=== PATIENT | female | born 1940 | race Caucasian/White ===

== ENCOUNTER 2021-05-14 16:52 | Emergency (ER) | payer OTHER, SELFPAY ==
--- NOTE | ~2021-05-14 | XR_ITS ---
EXAMINATION: XR ribs LT 2V w CXR 2V INDICATION: Left-sided chest pain after fall TECHNIQUE: AP and lateral views of the chest and 3 views of the left ribs were obtained. COMPARISON: None. FINDINGS: There is mild atelectasis of the left lung base. No pleural effusion or pneumothorax is oliver ntified. The heart size is normal. There are changes of coronary artery bypass grafting. There are ac red cliff fractures of the left eighth and ninth ribs. IMPRESSION: 1. Left eighth and ninth rib fractures. No acute cardiopulmonary abnormality. Reviewed, dictated and finalized at location A.
--- NOTE | ~2021-05-14 | CT_ITS ---
EXAMINATION: CT abdomen pelvis w con INDICATION: Abdominal pain TECHNIQUE: Computed tomographic images of the abdomen and pelvis were obtained after the administrati on of 100 cc of Omnipaque 350 intravenous contrast. The dose-length product (DLP) was 314.15 mGy-cm. Automated exposure control and iterative reconstruction technique were employed. COMPARISON: None available FINDINGS: Minimal dependent atelectasis is present in the lung bases. The heart size is normal. There are healing fractures of the left eighth and ninth ribs. There is an age-indeterminate left 11th rib fracture. There is focal fatty infiltration of the liver adjacent to the ligamentum teres. The splee n, pancreas, and adrenal glands are normal. Stones are present in the nondistended gallbladder. The k idneys are unremarkable. There is a 3.7 x 3.2 cm fusiform infrarenal abdominal aortic aneurysm status post endoluminal stent graft repair. The urinary bladder is moderately distended. Colonic diverticul osis is present without evidence of diverticulitis. No pathologically enlarged abdominal or pelvic ly mph nodes are identified. There is no free intraperitoneal gas or evidence of bowel obstruction. Ther e are multiple areas of fatty infiltration in the anterior abdominal wall, likely bruising. There are tiny foci of hyperattenuation in the left lower quadrant and right midabdomen which could reflect ac emir hematomas. There is moderate lumbar spondylosis. IMPRESSION: 1. Multiple areas of fatty infiltration of the anterior abdominal wall, likely bruising, some with fo ci of hyperattenuation which likely reflect acute hematomas. 2. Healing left eighth and ninth rib fracture is an age-indeterminate 11th rib fracture. Reviewed, dictated and finalized at location A. IMPRESSION: 1. Multiple areas of fatty infiltration of the anterior abdominal wall, likely bruising, some with foci of hyperattenuation which likely reflect acute hematom as. 2. Healing left eighth and ninth rib fracture is an age-indeterminate 11th rib fracture.
[2021-05-14 16:55] VITALS: BP 100/60; PULSE 94; RESP 20; TEMP 36.4; O2SAT 96
[2021-05-14 17:19] VITALS: BP 121/88; PULSE 95; RESP 18; O2SAT 96
--- NOTE | 2021-05-14 17:49 | ED.FALL ---
HPI - Fall General Chief Complaint: Fall Stated Complaint: fall Time Seen by Provider: 05/14/21 17:19 Source: patient, EMS and RN notes reviewed Mode of arrival: EMS Limitations: no limitations History of Present Illness HPI Narrative: Patient is 80 years old white female [facility] because of pain in the abdomen mainly left side and left lower ribs after a fall yesterday. Patient tripped and fell on her walker yesterday. Denies any head injury, neck injury or back injury. Complaining of left abdominal pain and left lower rib pain. Patient had x-ray left hip yesterday with negative results at the [facility] Patient denies any fever, chills, nausea, vomiting, chest pain, shortness of breath, headache, neck pain or back pain. Patient is bedridden, status post a CABG 1 month ago at [facility]. Review of Systems Review of Systems: CONSTITUTIONAL: Denies fever, chills, or sweats. EYES: Denies visual changes, redness, or discharge. ENT: Denies rhinorrhea, congestion, sore throat, or otalgia. CARDIOVASCULAR: Denies chest pain, palpitations, or edema. RESPIRATORY: Denies cough or dyspnea. GASTROINTESTINAL: Denies abdominal pain, nausea, vomiting, or diarrhea. GENITOURINARY: Denies dysuria or hematuria. SKIN: Denies rash or itching. MUSCULOSKELETAL: Denies back pain, joint pain, or myalgia. NEUROLOGIC: Denies headache, numbness, or weakness. PSYCHIATRIC: Denies anxiety or depression. [facility] Family History Family History Father Family history of heart disease in male family member before age 55 Mother Family history of heart disease in male family member before age 55 Other Asthma Cerebrovascular accident Family history of arthritis Family history of cardiovascular disease Family history of renal cell carcinoma Hypertension Social History Social History Smoking status: Heavy tobacco smoker Alcohol intake: never Gender identity (if verbalized by the patient): Female Exam Narrative: General appearance: Well-developed, well-nourished Skin: Diffuse ecchymosis of the abdomen almost 50% of the abdominal skin. Secondary to subcutaneous injection of possible Lovenox as a prophylaxis to prevent deep vein thrombosis Head: Normocephalic, nontraumatic Eyes: Clear conjunctiva ENT: Oropharynx normal, ears normal, nose normal Neck: Supple, nontender Chest and respiratory: Airway patent, no respiratory distress, no accessory muscle use, diffuse tenderness left lower ribs with palpation. Heart: Regular rate/rhythm Abdomen: Soft, diffuse tenderness mainly left abdomen Vascular: Normal peripheral pulses, normal capillary refill. Musculoskeletal: Normal range of motion, nontender back Neurologic: Alert and oriented ?3, [employer] is normal as tested, no gross motor deficit Course Course Emergency Course: Stable Vital Signs Vital signs: Vital Signs Temperature 36.4 C L 05/14/21 16:55 Pulse Rate 94 05/14/21 16:55 Respiratory Rate 20 05/14/21 16:55 Blood Pressure 100/60 05/14/21 16:55 Pulse Oximetry 96 05/14/21 16:55 Temperature 36.4 C L 05/14/21 16:55 Pulse Rate 95 05/14/21 17:19 Respiratory Rate 18 05/14/21 17:19 Blood Pressure 121/88 05/14/21 17:19 Pulse Oximetry 96 05/14/21 17:19 MDM - Fall MDM Narrative Medical decision making narrative: Patient presents with pain abdomen and left lower ribs status post a fall yesterday. Intra-abdominal viscus injury, rib fracture is my concern. Labs, left rib x-ray, CT abdomen pelvis with IV contrast, UA ordered Differential Diagnosis Differenti
[2021-05-14 18:28] LABS: Basophils Percent Auto 0.2 % (0.2-1.2); Eosinophils Absolute Auto 0.2 K/mm3 (0-0.3); Hematocrit 31.5 % (37.0-47.0); Hemoglobin 9.8 g/dL (12.0-15.0); Immature Granulocyte Absolute 0.02 K/mm3 (0.00-0.031); Immature Granulocyte Percent A 0.4 % (0-0.5); Lymphocytes Absolute Auto 1.02 K/mm3 (0.9-3.2); Lymphocytes Percent Auto 21.2 % (18.3-44.2); Mean Corpuscular HGB Conc 31.1 g/dl (32-36); Mean Corpuscular Hemoglobin 30.8 pg (26-34); Mean Corpuscular Volume 99.1 fl (80-100); Mean Platelet Volume 11.3 fl (7.4-10.4); Monocytes Absolute Auto 0.3 K/mm3 (0.1-0.6); Monocytes Percent Auto 6.4 % (2.6-8.5); Neutrophils Absolute Auto 3.3 K/mm3 (1.3-6.7); Neutrophils Percent Auto 67.8 % (45.5-73.1); Platelet Count Result 272 k/mm3 (150-375); Red Blood Count 3.18 M/mm3 (4.2-5.4); Red Cell Distribution Width 19.2 % (11.5-14.5); White Blood Count 4.8 K/mm3 (4.5-10.0)
[2021-05-14] MEDS: MORPHINE SULFATE (*CRX) 4 MG/ML INJ IV PUSH (18:30)
[2021-05-14] MEDS: ONDANSETRON INJ 4 MG/2 ML VIAL IV PUSH (18:30)
[2021-05-14] MEDS: SODIUM CHLORIDE 0.9% IV 1,000 ML 999 ML IV CONT (18:30)
[2021-05-14 18:43] LABS: Alanine Aminotransferase 6 U/L (4-35); Albumin Level 3.7 g/dL (3.5-5.1); Alkaline Phosphatase 125 U/L (38-126); Anion Gap 11 mmol/L (8-16); Aspartate Amino Transferase 19 U/L (14-36); Bilirubin,Total 0.6 mg/dL (0.2-1.3); Blood Urea Nitrogen 24 mg/dL (7-17); Calcium 9.2 mg/dL (8.4-10.2); Carbon Dioxide 26 mmol/L (22-30); Chloride 99 mmol/L (98-107); Estimated Glomerular Filt Rate 48; Glucose 104 mg/dL (65-110); Lipase 38 U/L (23-300); Potassium 4.4 mmol/L (3.4-5.0); Sodium 136 mmol/L (137-145)
[2021-05-14 19:00] VITALS: BP 118/79; PULSE 93; RESP 18; O2SAT 96
[2021-05-14 19:06] LABS: Add Urine Microscopic? YES; Appearance Urine Cloudy (Clear); Bacteria Urine Trace /hpf; Bilirubin Urine Negative (Negative); Blood Urine Negative (Negative); Color Urine Yellow (Yellow); Glucose Urine UA Negative (Negative); Ketones Urine Negative (Negative); Leukocyte Esterase Ur 3+ LEU/UL (Negative); Mucus Urine Rare /lpf; Nitrate Urine Negative (Negative); Protein Urine Negative (Negative); RBC Urine 0-2 /hpf (0-2); Specific Grav Ur 1.008 (1.001-1.035); Squamous Epithelial Cell Urine Many /hpf (Few); Urobilinogen Urine Negative mg/dL (<2.0); WBC Urine >75 /hpf
--- NOTE | 2021-05-14 19:16 | PC.NURSE ---
Assumed care at this time, report from DENNIS Lux
[2021-05-14 20:48] VITALS: BP 116/76; PULSE 78; RESP 18; O2SAT 98
--- NOTE | 2021-05-14 21:39 | PC.NURSE ---
Addendum entered by Shawna Coleman 05/14/21 21:39: [facility], [facility] and [facility] not available tonight. Original Note: called [facility] to request transport. ETA [id number]
--- NOTE | 2021-05-14 22:50 | PC.NURSE ---
cancel [facility].
[2021-05-14 23:22] VITALS: BP 116/70; PULSE 78; RESP 18; O2SAT 94
== END 2021-05-14 23:23 ==
PROVIDERS: Emergency Medicine; Emergency Provider Emergency Medicine
DX: S22.42XA Multiple fractures of ribs, left side, initial encounter for closed fracture (principal); I25.10 Atherosclerotic heart disease of native coronary artery without angina pectoris; Z95.1 Presence of aortocoronary bypass graft; F17.200 Nicotine dependence, unspecified, uncomplicated; R10.9 Unspecified abdominal pain; W01.198A Fall on same level from slipping, tripping and stumbling with subsequent striking against other object, initial encounter
CPT/HCPCS: 36415; 71046; 71100; 74177; 80053; 81001; 83690; 85025; 87077; 87086; 87186; 96361; 96365; 96375; 99284; J0696; J2270; J2405; J7030; Q9967

== ENCOUNTER 2021-06-14 15:57 | Outpatient (NON) | payer OTHER, SELFPAY ==
[2021-06-14 16:58] LABS: Hematocrit 28.9 % (37.0-47.0); Hemoglobin 8.8 g/dL (12.0-15.0)
== END 2021-06-14 15:58 | disposition home or self-care (01) ==
PROVIDERS: Visit Provider Physician Assistant
DX: I48.91 Unspecified atrial fibrillation (principal); J44.9 Chronic obstructive pulmonary disease, unspecified; I25.10 Atherosclerotic heart disease of native coronary artery without angina pectoris; Z48.812 Encounter for surgical aftercare following surgery on the circulatory system
CPT/HCPCS: 85014; 85018

== ENCOUNTER 2024-09-10 20:53 | Observation (INO) | payer OTHER, SELFPAY ==
[2024-09-10 21:04] VITALS: BP 131/84; PULSE 113; RESP 25; O2SAT 97
--- NOTE | 2024-09-10 21:13 | ECG_ITS ---
Test Date: 2024-09-10 21:20:40 Measurements Intervals [place] Rate: 109 P: 0 MS: 0 QRS: -59 QRSD: 141 T: 29 QT: 382 QTc: 516 Interpretive Statements ATRIAL FIBRILLATION WITH RAPID VENTRICULAR RESPONSE LEFT AXIS DEVIATION RIGHT BUNDLE BRANCH BLOCK CONSIDER INFERIOR INFARCT, AGE INDETERMINATE BASELINE ARTIFACT- I, II, III, AVR, AVL, AVF, V3, V6 ABNORMAL ECG No previous ECG available for comparison Electronically Signed On 09-11-2024 07:08:30 [employer] by Kendell Farias D.O.
[2024-09-10 21:30] LABS: Basophils Percent Auto 0.3 % (0.2-1.2); Eosinophils Absolute Auto 0.1 K/mm3 (0-0.3); Eosinophils Percent Auto 3.8 % (0-4.4); Hematocrit 21.6 % (37.0-47.0); Immature Granulocyte Absolute 0.04 K/mm3 (0.00-0.031); Immature Granulocyte Percent A 1.3 % (0-0.5); Lymphocytes Absolute Auto 0.33 K/mm3 (0.9-3.2); Lymphocytes Percent Auto 10.3 % (18.3-44.2); Mean Corpuscular HGB Conc 30.6 g/dl (32-36); Mean Corpuscular Hemoglobin 31.9 pg (26-34); Mean Corpuscular Volume 104.3 fl (80-100); Mean Platelet Volume 12.9 fl (7.4-10.4); Monocytes Absolute Auto 0.2 K/mm3 (0.1-0.6); Neutrophils Absolute Auto 2.5 K/mm3 (1.3-6.7); Neutrophils Percent Auto 78.3 % (45.5-73.1); Platelet Count Result 168 k/mm3 (150-375); Red Blood Count 2.07 M/mm3 (4.2-5.4); Red Cell Distribution Width 23.7 % (11.5-14.5); White Blood Count 3.2 K/mm3 (4.5-10.0)
[2024-09-10 21:31] LABS: Hemoglobin 6.6 g/dL (12.0-15.0)
[2024-09-10 21:50] LABS: Alanine Aminotransferase 8 U/L (6-35); Albumin Level 3.4 g/dL (3.5-5.1); Alkaline Phosphatase 98 U/L (38-126); Anion Gap 7 mmol/L (4-12); Aspartate Amino Transferase 18 U/L (14-36); Bilirubin,Total 0.6 mg/dL (0.2-1.3); Blood Urea Nitrogen 25 mg/dL (7-17); Calcium 8.3 mg/dL (8.4-10.2); Carbon Dioxide 28 mmol/L (22-30); Chloride 104 mmol/L (98-107); Estimated CRCL calculation 33 ml/min; Estimated Glomerular Filt Rate 53; Glucose 101 mg/dL (65-110); Potassium 4.1 mmol/L (3.4-5.0); Sodium 139 mmol/L (137-145)
[2024-09-10 21:57] LABS: Ovalocytes 1+; Platelet Estimate Adequate (Adequate); Schistocytes None Seen
--- NOTE | 2024-09-10 21:59 | ED.GENADULT ---
HPI - General Adult General Chief complaint: Recheck/Abnormal Lab/Rx Stated complaint: HGB 6.8, SOB, 3L NC Time Seen by Provider: 09/10/24 21:38 History of Present Illness HPI narrative: patient 84-year-old female who presents emergency department with chief complaint of anemia. Patient reports he has prior history of COPD and reports he has history of anemia where she has been seen multiple times at [facility] and has had multiple transfusions. Patient reports that they do have a difficult time sometimes getting blood for her reports that she recently moved into [facility] and would like to start receiving her care at our facility instead of traveling although when [place] the patient reports that they did labs on her today and called and said that she should go to the emergency department for blood transfusion. the patient denies blood in her stool reports this is her usual episode MDS cause of anemia Related Data Home Medications Medication Instructions Recorded Confirmed aspirin 81 mg tablet 81 mg PO DAILY 05/14/21 05/14/21 atorvastatin 40 mg tablet 05/14/21 bupropion HCl 150 mg 24 hr tablet, mg PO 05/14/21 05/14/21 extended release ergocalciferol (vitamin D2) 1,250 05/14/21 mcg (50,000 unit) capsule fluticasone furoate 200 inhalation 05/14/21 mcg-vilanterol 25 mcg/dose inhalation powder (Breo Ellipta) furosemide 40 mg tablet 05/14/21 gabapentin 300 mg capsule 05/14/21 heparin (porcine) 5,000 unit/mL 05/14/21 injection solution ipratropium 0.5 mg-albuterol 3 mg ml inhalation 05/14/21 (2.5 mg base)/3 mL nebulization soln lorazepam 0.5 mg tablet 05/14/21 meclizine 25 mg tablet mg 05/14/21 oxycodone 5 mg tablet 05/14/21 pantoprazole 40 mg tablet,delayed PO 05/14/21 release potassium chloride 20 mEq meq PO 05/14/21 tablet,extended release(part/cryst) ramelteon 8 mg tablet 8 mg PO HS 05/14/21 05/14/21 sennosides 8.6 mg tablet (senna) 8.6 mg PO HS 05/14/21 05/14/21 tamsulosin 0.4 mg capsule mg PO 05/14/21 Allergies Allergy/AdvReac Type Severity Reaction Status Date / Time amoxicillin [From Augmentin] Allergy Unknown Verified 09/10/24 21:14 clavulanic acid Allergy Unknown Verified 09/10/24 21:14 [From Augmentin] Penicillins Allergy Unknown Verified 09/10/24 21:14 [facility] Family History Family History Father Family history of heart disease in male family member before age 55 Mother Family history of heart disease in male family member before age 55 Other Asthma Cerebrovascular accident Family history of arthritis Family history of cardiovascular disease Family history of renal cell carcinoma Hypertension Social History Social History (System 12/06/21 @ 15:14 by Citlaly Duran) Smoking status: Heavy tobacco smoker Alcohol intake: never Gender identity (if verbalized by the patient): Female Course Vital Signs Vital signs: Vital Signs Pulse Rate 113 H 09/10/24 21:04 Respiratory Rate 25 H 09/10/24 21:04 Blood Pressure 131/84 09/10/24 21:04 Pulse Oximetry 97 09/10/24 21:04 Oxygen Delivery Nasal Cannula 09/10/24 21:04 Oxygen Flow Rate 3 09/10/24 21:04 Temperature 36.8 C 09/10/24 22:24 Pulse Rate 107 H 09/10/24 22:24 Respiratory Rate 20 09/10/24 22:24 Blood Pressure 133/70 09/10/24 22:24 Pulse Oximetry 95 09/10/24 22:24 Oxygen Delivery Nasal Cannula 09/10/24 21:04 Oxygen Flow Rate 3 09/10/24 22:16 Medical Decision Making Vital Signs Vital Signs: Vital Signs Pulse Rate 113 H 09/10/24 21:04 Respiratory Rate 25 H 09/10/24 21:04 Blood Pressure 131/84 09/10/24 21:04 Pulse Oximetry 97 09/10/24 21:04 Oxygen Delivery Nasal Cannula 09/10/24 21:04 Oxygen Flow Rate 3 09/10/24 21:04 Temperature 36.8 C 09/10/24 22:24 Pulse Rate 107 H 09/10/24 22:24 Respiratory Rate 20 09/10/24 22:24 Blood Pressure 133/70 09/10/24 22:24 Pulse Oximetry 95 09/10/24 22:24 Oxygen Delivery Nasal Cannula 09/10/24 21:04 Oxygen Flow Rate 3 09/10/24 22:16 Lab Data 09/10/24 21:22 09/10/24 21:22 Labs: Lab Results 09/10/24 Range/Units 21:22 WBC 3.2 L (4.5-10.0) K/mm3 RBC 2.07 L (4.2-5.4) M/mm3 Hgb 6.6 L* (12.0-15.0) g/dL Hct 21.6 L (37.0-47.0) % MCV 104.3 H (80-100) fl MCH 31.9 (26-34) pg MCHC 30.6 L (32-36) g/dl RDW 23.7 H (11.5-14.5) % Plt Count 168 (150-375) k/mm3 MPV 12.9 H (7.4-10.4) fl Immature Gran % (Auto) 1.3 H (0-0.5) % Neut % (Auto) 78.3 H (45.5-73.1) % Lymph % (Auto) 10.3 L (18.3-44.2) % [place] % (Auto) 6.0 (2.6-8.5) % Eos % (Auto) 3.8 (0-4.4) % Baso % (Auto) 0.3 (0.2-1.2) % Lymph # (Auto) 0.33 L (0.9-3.2) K/mm3 [place] # (Auto) 0.2 (0.1-0.6) K/mm3 Eos # (Auto) 0.1 (0-0.3) K/mm3 Baso # (Auto) 0.0 (0.0-0.1) K/mm3 Abs Immat Gran (auto) 0.04 H (0.00-0.031) K/mm3 Absolute Neuts (auto) 2.5 (1.3-6.7) K/mm3 Absolute Nucleated RBC 0.000 (0.0-0.012) K/mm3 Nucleated RBC % 0.0 (0.0-0.2) % Platelet Estimate Adequate (Adequate) Ovalocytes 1+ Schistocytes None seen Sodium 139 (137-145) mmol/L Potassium 4.1 (3.4-5.0) mmol/L Chloride 104 (98-107) mmol/L Carbon Dioxide 28 (22-30) mmol/L Anion Gap 7 (4-12) mmol/L BUN 25 H (7-17) mg/dL Creatinine 1.00 (0.7-1.0) mg/dL Estim Creat Clear Calc 33 ml/min Estimated GFR 53 L (59 - ) Glucose 101 (65-110) mg/dL Calcium 8.3 L (8.4-10.2) mg/dL Total Bilirubin 0.6 (0.2-1.3) mg/dL AST 18 (14-36) U/L ALT 8 (6-35) U/L Alkaline Phosphatase 98 (38-126) U/L Total Protein 7.0 (6.3-8.2) g/dL Albumin 3.4 L (3.5-5.1) g/dL Blood Type A Positive Antibody Screen Pending Crossmatch See Detail Discharge Plan Discharge Clinical Impression: Anemia Patient Disposition: Still a Patient Condition: Stable Prescriptions: No Action furosemide 40 mg tablet atorvastatin 40 mg tablet sennosides [senna] 8.6 mg Tablet 8.6 mg PO HS ipratropium-albuterol 0.5 mg-3 mg(2.5 mg base)/3 mL solution for nebulization INHALATION potassium chloride 20 mEq tablet,ER particles/crystals PO lorazepam 0.5 mg tablet tamsulosin 0.4 mg capsule PO meclizine 25 mg tablet pantoprazole 40 mg tablet,delayed release (DR/EC) PO gabapentin 300 mg capsule aspirin 81 mg Tablet 81 mg PO DAILY ergocalciferol (vitamin D2) 1,250 mcg (50,000 unit) capsule heparin (porcine) 5,000 unit/mL solution oxycodone 5 mg tablet bupropion HCl 150 mg tablet extended release 24 hr PO ramelteon 8 mg Tablet 8 mg PO HS Breo Ellipta 200-25 mcg/dose blister with device INHALATION cefdinir 300 mg capsule 300 mg PO Q12H Qty: 10 0RF Follow-up/Referrals: UNKNOWN,DOCTOR [Primary Care Provider] - Time of Disposition: 22:53
[2024-09-10 22:16] VITALS: O2SAT 95
[2024-09-10 22:24] VITALS: BP 133/70; PULSE 107; RESP 20; TEMP 36.8; O2SAT 95
[2024-09-10] MEDS: SODIUM CHLORIDE 0.9% IV 250 ML 30 ML IV CONT (22:47)
[2024-09-11] VITALS (16 sets, daily range): BP systolic 104–139; BP diastolic 73–89; PULSE 54–122; RESP 15–18; TEMP 36.4–37; O2SAT 92–100; BMI 25.9
[2024-09-11] MEDS: TUBING, BLOOD SET 1 EACH XX (00:31)
--- NOTE | 2024-09-11 01:00 | ADMGEN ---
This patient, Kamala Ellis, was admitted to Medical Room 340-01. Patient/family oriented to hospital policies and general routines including ID bracelet, bed and alarms, visiting hours, pain management, procedures, bathroom and other care routines, personal items, smoking policy, room service/diet, and visiting hours. Information on how to activate the Rapid Response Team has been discussed. Patient/Family are encouraged to report perceived risks to care and to ask questions if they do not understand what they are told or what they should do.
[2024-09-11] MEDS: SODIUM CHLORIDE 0.9% IV 250 ML 30 ML (03:25)
[2024-09-11 08:47] LABS: Hematocrit 28.6 % (37.0-47.0); Hemoglobin 9.2 g/dL (12.0-15.0); Mean Corpuscular HGB Conc 32.2 g/dl (32-36); Mean Corpuscular Hemoglobin 32.1 pg (26-34); Mean Corpuscular Volume 99.7 fl (80-100); Platelet Count Result 147 k/mm3 (150-375); Red Blood Count 2.87 M/mm3 (4.2-5.4); Red Cell Distribution Width 21.2 % (11.5-14.5); White Blood Count 3.3 K/mm3 (4.5-10.0)
--- NOTE | 2024-09-11 08:50 | PM.IMHP ---
H&P: HPI History of Present Illness Date/Time: 09/11/24 08:50 Chief Complaint: Generalized weakness Narrative: Ms. Kamala Ellis was is 84 years old female with history of MDS and multiple blood transfusions. In the past patient has received multiple transfusion [facility]. Today patient was feeling weak and decided to come to [facility]. In the ER patient was found to have hemoglobin of 6.6. Patient was given 2 units of blood and was transferred to for further evaluation. At present time patient is lying comfortably. Patient denies any shortness of breath or chest pain. Patient is feeling better. Plan is to repeat CBC and continue home medication. If repeat CBC stable will discharge home. Review of Systems Review of Systems: All systems reviewed & are unremarkable except as noted in HPI and below (the history and physical exam.) [facility] Family History Family History Father Family history of heart disease in male family member before age 55 Mother Family history of heart disease in male family member before age 55 Cerebrovascular accident Family history of cardiovascular disease Other Asthma Family history of arthritis Family history of renal cell carcinoma Hypertension Social History Social History Smoking packs per day: 1 Smoking cigarettes per day: 20.0 Years smoked: 50 Smoking pack-years: 50.00 Smoking status: Heavy tobacco smoker Tobacco type: cigarettes Smoking end date: 02/13/24 Alcohol intake: never Substance use: never Do You Feel Safe in your Home?: Yes Lack of Transportation: No Lack of Food: Never True Current Housing: I Have Housing Concerned About Future Housing: No Difficulty Paying Gas/Electric Bills: No Difficulty Paying for Meds: No Currently Unemployed: No Education: High School Diploma/GED Difficulty w/ Childcare or Family Care: No Gender identity (if verbalized by the patient): Female Spiritual care concerns: No Meds Home Medications and Allergies Home Medications Medication Instructions Recorded Confirmed Type aspirin 81 mg tablet 81 mg PO DAILY 05/14/21 09/11/24 History atorvastatin 40 mg tablet 40 mg PO HS 05/14/21 09/11/24 History bupropion HCl 150 mg 24 hr tablet, 150 mg PO DAILY 05/14/21 09/11/24 History extended release sennosides 8.6 mg tablet (senna) 8.6 mg PO DAILY 05/14/21 09/11/24 History albuterol sulfate 90 mcg/actuation 2 puff inhalation Q6H PRN SOB 09/11/24 09/11/24 History aerosol inhaler amiodarone 200 mg tablet 200 mg PO BID 09/11/24 09/11/24 History budesonide 160 mcg-glycopyr 9 2 inh inhalation BID 09/11/24 09/11/24 History mcg-formot 4.8 mcg/actuation HFA inhaler (Breztri Aerosphere) cyanocobalamin (vitamin B-12) 500 1,000 mcg PO DAILY 09/11/24 09/11/24 History mcg tablet dicyclomine 10 mg capsule 10 mg PO TID 09/11/24 09/11/24 History ferrous sulfate 325 mg (65 mg 325 mg PO DAILY 09/11/24 09/11/24 History iron) capsule,extended release folic acid 1 mg tablet 1 mg PO DAILY 09/11/24 09/11/24 History furosemide 20 mg tablet 20 mg PO DAILY 09/11/24 09/11/24 History pregabalin 50 mg capsule 50 mg PO BID 09/11/24 09/11/24 History Allergies Allergy/AdvReac Type Severity Reaction Status Date / Time amoxicillin [From Augmentin] Allergy Unknown Verified 09/10/24 21:14 clavulanic acid Allergy Unknown Verified 09/10/24 21:14 [From Augmentin] Penicillins Allergy Unknown Verified 09/10/24 21:14 Vital Signs Vital Signs - 24 hr 09/10/24 21:04 09/10/24 22:16 09/10/24 22:24 Temperature 36.8 C Pulse Rate 113 H 107 H Respiratory Rate 25 H 20 Blood Pressure 131/84 133/70 Pulse Oximetry 97 95 95 Oxygen Delivery Nasal Cannula Oxygen Flow Rate 3 3 09/11/24 00:25 09/11/24 00:33 09/11/24 00:42 Temperature 36.8 C 36.9 C Pulse Rate 93 102 H 103 H Respiratory Rate 15 15 16 Blood Pressure 121/75 125/74 122/77 Pulse Oximetry 98 99 99 Oxygen Delivery Oxygen Flow Rate 09/11/24 01:39 09/11/24 03:09 09/11/24 03:28 Temperature 37.0 C 36.5 C 36.5 C Pulse Rate 102 H 54 L 96 Respiratory Rate 16 18 18 Blood Pressure 135/76 104/73 135/80 Pulse Oximetry 100 95 100 Oxygen Delivery Oxygen Flow Rate 09/11/24 04:25 09/11/24 04:27 09/11/24 04:28 Temperature 36.4 C L 36.5 C 36.4 C L Pulse Rate 100 97 97 Respiratory Rate 18 18 18 Blood Pressure 126/77 127/77 127/77 Pulse Oximetry 100 100 100 Oxygen Delivery Oxygen Flow Rate 09/11/24 05:28 09/11/24 05:39 09/11/24 06:08 Temperature 36.5 C 36.5 C 36.9 C Pulse Rate 93 93 93 Respiratory Rate 18 18 18 Blood Pressure 132/86 132/86 139/89 Pulse Oximetry 100 100 98 Oxygen Delivery Oxygen Flow Rate 09/11/24 04:00 Temperature Pulse Rate 95 Respiratory Rate Blood Pressure Pulse Oximetry Oxygen Delivery Oxygen Flow Rate Exam Narrative: Narrative: General appearanc e: Well-developed, well-nourished Sk in: Diffuse ecchym osis of the abdome n almost 50% of th e abdominal skin. Secondary to subc utaneous injection of possible Loven ox as a prophylaxi s to prevent deep vein thrombosis He ad: Normocephalic, nontraumatic Eyes : Clear conjunctiv a ENT: Oropharynx normal, ears elsa l, nose normal Nec k: Supple, nontend er Chest and respi ratory: Airway pat ent, no respirator y distress, no acc essory muscle use, diffuse tendernes s left lower ribs with palpation. He art: Regular rate/ rhythm Abdomen: So ft, diffuse tender ness mainly left a bdomen Vascular: N ormal peripheral p ulses, normal capi llary refill. Musc uloskeletal: Elsa l range of motion, nontender back Ne urologic: Alert an d oriented ?3, [employer] is normal as test ed, no gross motor deficit H&P: Results Labs Labs: Short CBC 09/10/24 09/11/24 Range/Units 21:22 08:37 WBC 3.2 L 3.3 L (4.5-10.0) K/mm3 Hgb 6.6 L* 9.2 L (12.0-15.0) g/dL Hct 21.6 L 28.6 L (37.0-47.0) % Plt Count 168 147 L (150-375) k/mm3 BMP 09/10/24 21:22 Sodium 139 Potassium 4.1 Chloride 104 Carbon Dioxide 28 BUN 25 H Creatinine 1.00 Glucose 101 Calcium 8.3 L Liver Function 09/10/24 Range/Units 21:22 Total Bilirubin 0.6 (0.2-1.3) mg/dL AST 18 (14-36) U/L ALT 8 (6-35) U/L Alkaline Phosphatase 98 (38-126) U/L Albumin 3.4 L (3.5-5.1) g/dL Assessment and Plan Assessment and plan (1) Anemia: Code(s): D64.9 - Anemia, unspecified Status: Acute Assessment and Plan: History of MDS. Patient hemoglobin was 6.6. Patient received 2 units of blood. Repeat CBC and possible discharge back home today. (2) History of COPD: Code(s): Z87.09 - Personal history of other diseases of the respiratory system Status: Acute Assessment and Plan: Stable on current medications. Will continue current treatment (3) History of hypertension: Code(s): Z86.79 - Personal history of other diseases of the circulatory system Status: Acute Assessment and Plan: Stable on current medications. Will continue current treatment Quality VTE Prophylaxis VTE prophylaxis: mechanical ordered Patient is admitted for observation. 2 units of blood was given. Will repeat CBC and if CBC stable will discharge patient back home. Full code.
--- NOTE | 2024-09-11 09:10 | P.DS_ITS ---
DS: Admitting Diagnosis Discharge Date 09/11/2024 Admitting Diagnosis Anemia DS: Discharge Diagnosis Discharge Diagnosis (1) Anemia: Code(s): D64.9 - Anemia, unspecified Status: Acute Assessment and Plan: History of MDS. Patient hemoglobin was 6.6. Patient received 2 units of blood. Repeat CBC and possible discharge back home today. (2) History of COPD: Code(s): Z87.09 - Personal history of other diseases of the respiratory system Status: Acute Assessment and Plan: Stable on current medications. Will continue current treatment (3) History of hypertension: Code(s): Z86.79 - Personal history of other diseases of the circulatory system Status: Acute Assessment and Plan: Stable on current medications. Will continue current treatment DS: Summary Hospital Course Reason for hospitalization: Anemia Hospital Course: 84 years old female was admitted because of anemia hemoglobin was 6.6. Patient was given 2 units of blood. Home medications were continued. Repeat hemoglobin is 9.2. Patient discharged home in stable condition patient stay in the hospital was uneventful. Follow-up scheduled with primary care and Hematology. Status at Discharge Cognitive/behavioral status at discharge: Stable Time Spent with Patient Time attestation: Total time spent providing and/or coordinating discharge services: 30 minutes Exam Narrative: Narrative: General appearanc e: Well-developed, well-nourished Sk in: Diffuse ecchym osis of the abdome n almost 50% of th e abdominal skin. Secondary to subc utaneous injection of possible Loven ox as a prophylaxi s to prevent deep vein thrombosis He ad: Normocephalic, nontraumatic Eyes : Clear conjunctiv a ENT: Oropharynx normal, ears elsa l, nose normal Nec k: Supple, nontend er Chest and respi ratory: Airway pat ent, no respirator y distress, no acc essory muscle use, diffuse tendernes s left lower ribs with palpation. He art: Regular rate/ rhythm Abdomen: So ft, diffuse tender ness mainly left a bdomen Vascular: N ormal peripheral p ulses, normal capi llary refill. Musc uloskeletal: Elsa l range of motion, nontender back Ne urologic: Alert an d oriented ?3, [employer] is normal as test ed, no gross motor deficit DS: Data Data Completed and Pending Labs on day of discharge: Labs from last 24 hours 09/11/24 09/10/24 08:37 21:22 WBC 3.3 L 3.2 L RBC 2.87 L 2.07 L Hgb 9.2 L 6.6 L* Hct 28.6 L 21.6 L MCV 99.7 104.3 H MCH 32.1 31.9 MCHC 32.2 30.6 L RDW 21.2 H 23.7 H Plt Count 147 L 168 MPV 13.0 H 12.9 H Immature Gran % (Auto) 1.3 H Neut % (Auto) 78.3 H Lymph % (Auto) 10.3 L Schley % (Auto) 6.0 Eos % (Auto) 3.8 Baso % (Auto) 0.3 Lymph # (Auto) 0.33 L Schley # (Auto) 0.2 Eos # (Auto) 0.1 Baso # (Auto) 0.0 Abs Immat Gran (auto) 0.04 H Absolute Neuts (auto) 2.5 Absolute Nucleated RBC 0.000 Nucleated RBC % 0.0 Platelet Estimate Adequate Ovalocytes 1+ Schistocytes None seen Sodium 139 Potassium 4.1 Chloride 104 Carbon Dioxide 28 Anion Gap 7 BUN 25 H Creatinine 1.00 Estim Creat Clear Calc 33 Estimated GFR 53 L Glucose 101 Calcium 8.3 L Total Bilirubin 0.6 AST 18 ALT 8 Alkaline Phosphatase 98 Total Protein 7.0 Albumin 3.4 L Blood Type A Positive Antibody Screen Negative Crossmatch See Detail Discharge Plan Discharge Attending physician on discharge: Shiv Estes Discharging Clinician: Shiv Estes Patient Disposition: Home, Self-Care Activity: as tolerated Diet: as tolerated Patient Instructions: Antibiotic Form, How to Stop Smoking (DC) Stand Alone Forms: General Discharge Information Follow-up/Referrals: Florencia Chilel MD [Physician] - Discharge Medications: Continued atorvastatin 40 mg tablet 40 mg PO HS sennosides [senna] 8.6 mg Tablet 8.6 mg PO DAILY aspirin 81 mg Tablet 81 mg PO DAILY bupropion HCl 150 mg tablet extended release 24 hr 150 mg PO DAILY albuterol sulfate 90 mcg/actuation HFA aerosol inhaler 2 puff INHALATION Q6H PRN (Reason: SOB) dicyclomine 10 mg capsule 10 mg PO TID folic acid 1 mg tablet 1 mg PO DAILY amiodarone 200 mg tablet 200 mg PO BID pregabalin 50 mg capsule 50 mg PO BID furosemide 20 mg tablet 20 mg PO DAILY Rx Instructions: hold if SBP <110 ferrous sulfate 325 mg (65 mg iron) Capsule, Extended Release 325 mg PO DAILY cyanocobalamin (vitamin B-12) 500 mcg Tablet 1,000 mcg PO DAILY Breztri Aerosphere 160-9-4.8 mcg/actuation Hfa Aerosol Inhaler 2 inh INHALATION BID Date of admission: 09/10/24 22:51 Primary Care Provider: UNKNOWN,DOCTOR Admitting Provider: Hien Mendez Attending physician on admission: Hien Mendez Condition: Stable Quality VTE Prophylaxis VTE prophylaxis: mechanical ordered
[2024-09-11] MEDS: FUROSEMIDE INJ 40 MG/4 ML VIAL 20 MG IV PUSH (09:26)
[2024-09-11] MEDS: FERROUS SULFATE 325 MG TABLET DR BY MOUTH (09:28)
[2024-09-11] MEDS: FOLIC ACID 1 MG TABLET PO (09:28)
[2024-09-11] MEDS: DICYCLOMINE HCL 10 MG CAPSULE PO ×2 (09:28→12:30)
[2024-09-11] MEDS: SENNOSIDES 8.6 MG TABLET PO (09:28)
[2024-09-11] MEDS: ASPIRIN 81 MG CHEWABLE TABLET PO (09:28)
[2024-09-11] MEDS: buPROPion HCL XL (24 HR) 150 MG TABCR PO (09:28)
[2024-09-11] MEDS: CYANOCOBALAMIN 1,000 MCG TABLET 1000 MCG PO (09:28)
[2024-09-11] MEDS: AMIODARONE HCL 200 MG TABLET PO (09:29)
[2024-09-11] MEDS: FUROSEMIDE 20 MG TABLET PO (09:30)
[2024-09-11] MEDS: PREGABALIN (*CRX) 50 MG CAPSULE PO (12:30)
== END 2024-09-11 13:58 | disposition home or self-care (01) ==
LOC: ANHED 22:53 → ANH3MED 09-11 00:35
PROVIDERS: Admitting Provider Internal Medicine; Emergency Provider Emergency Medicine; Visit Provider Internal Medicine
DX: D64.9 Anemia, unspecified (principal); J44.9 Chronic obstructive pulmonary disease, unspecified; I10 Essential (primary) hypertension; F17.210 Nicotine dependence, cigarettes, uncomplicated; Z79.82 Long term (current) use of aspirin; Z79.899 Other long term (current) drug therapy; Z86.2 Personal history of diseases of the blood and blood-forming organs and certain disorders involving the immune mechanism
CPT/HCPCS: 36415; 36430; 80053; 85025; 85027; 86850; 86900; 86901; 86923; 93005; 96374; 96375; 99285; A9270; G0378; J1940; J7050; P9016